=== PATIENT | female | born 1995 | race African-American/Black ===

== ENCOUNTER 2017-04-17 07:34 | Emergency (ER) | payer MEDICAID, OTHER ==
[~2017-04-17] VITALS: Ht 162.6 cm; Wt 65.5 kg
[2017-04-17 07:38] VITALS: BP 114/79
[2017-04-17] MEDS ORDERED: LEXA1TAB PO (07:46)
[2017-04-17] MEDS ORDERED: ADVI200C5 PO (07:46)
[2017-04-17] MEDS ORDERED: MAGICMW SSP (08:12)
== END 2017-04-17 08:22 | disposition home or self-care (01) ==
LOC: M ED 07:34
DX: J02.9 Acute pharyngitis, unspecified (principal); F32.9 Major depressive disorder, single episode, unspecified; Z79.899 Other long term (current) drug therapy

== ENCOUNTER → 2017-04-22 | Outpatient (REF) | payer OTHER ==
[~2017-04-22] MED LIST: ADVI200C5 PO; LEXA1TAB PO; MAGICMW SSP
== END ==
LOC: M SFHCLERA 16:50
PROVIDERS: ATTEND Physician Assistant
DX: R30.0 Dysuria (principal)

== ENCOUNTER 2017-06-25 18:50 | Emergency (ER) | payer OTHER ==
[2017-06-25 21:49] LABS: BASO % 0.2 % (0.0-1.0); EOS # 0.1 10^3/uL (0.0-0.50); EOS % 0.5 % (0.0-3.0); HEMATOCRIT 35.3 % (36.0-47.0); HEMOGLOBIN 11.9 g/dl (12.0-16.0); IMMATURE GRANULOCYTE # 0.1 10^3/uL (0-0); IMMATURE GRANULOCYTE % 0.6 % (0-0); LYMPH # 2.3 10^3/uL (1.5-6.5); LYMPH % 12.9 % (24.0-44.0); MEAN CORPUSCULAR HEMOGLOBIN 29.5 pg (27.0-33.0); MEAN CORPUSCULAR HGB CONC 33.7 g/dl (32.0-36.5); MEAN CORPUSCULAR VOLUME 87.6 fl (80.0-96.0); MONO # 1.3 10^3/uL (0.0-0.8); MONO % 7.4 % (0.0-5.0); NEUTROPHILS # 13.9 10^3/uL (1.8-7.7); NEUTROPHILS % 78.4 % (36.0-66.0); PLATELET COUNT, AUTOMATED 230 10^3/uL (150-450); RED BLOOD COUNT 4.03 10^6/uL (4.00-5.40); WHITE BLOOD COUNT 17.8 10^3/uL (4.0-10.0)
[2017-06-25] MEDS: NS 1,000 ML IV (21:53)
[2017-06-25 22:09] LABS: ANION GAP 7 MEQ/L (8-16); BLOOD UREA NITROGEN 7 MG/DL (7-18); C REACTIVE PROTEIN QUANTITATIV 1.71 MG/DL (0.00-0.30); CARBON DIOXIDE LEVEL 25 MEQ/L (21-32); CHLORIDE LEVEL 105 MEQ/L (98-107); CREATININE FOR GFR 0.66 MG/DL (0.55-1.02); GLUCOSE, FASTING 98 MG/DL (70-100); SODIUM LEVEL 137 MEQ/L (136-145)
[2017-06-25 22:12] LABS: CONTROL LINE MONO INT CTR LINE PRESENT; MONO SCRN NEGATIVE (NEGATIVE)
[2017-06-25] MEDS: KETOROLAC 30 MG/ML VIAL (J1885) IV (22:15)
[2017-06-25] MEDS: dexameTHASONE 20 MG/5 ML VIAL (J1100) IV (22:15)
[2017-06-25] MEDS: CEFAZOLIN SOD 1 GM in APPROPRIATE DILUENT 1 EA IV (22:15)
== END 2017-06-26 01:12 | disposition home or self-care (01) ==
LOC: M ED 06-26 01:12
DX: J02.0 Streptococcal pharyngitis (principal); J03.00 Acute streptococcal tonsillitis, unspecified; Z79.899 Other long term (current) drug therapy
CPT/HCPCS: J1100

== ENCOUNTER → 2017-06-25 | Outpatient (REF) | payer OTHER | LOC: M SFHCLERA 18:26 | DX: R50.9 Fever, unspecified (principal) ==

== ENCOUNTER 2018-10-09 22:52 | Emergency (ER) | payer OTHER ==
[~2018-10-09 22:52] MED LIST changes: +KEFL500C17 PO
[2018-10-09 23:01] VITALS: BP 153/84
== END 2018-10-09 23:48 | disposition home or self-care (01) ==
LOC: M ED 22:52
DX: F41.0 Panic disorder [episodic paroxysmal anxiety] (principal); F32.9 Major depressive disorder, single episode, unspecified; Z79.899 Other long term (current) drug therapy

== ENCOUNTER → 2018-10-13 | Outpatient (CLI) | payer OTHER ==
[2018-10-13 18:02] LABS: BASO % 0.4 % (0.0-1.0); EOS # 0.1 10^3/uL (0.0-0.50); EOS % 1.1 % (0.0-3.0); HEMATOCRIT 41.8 % (36.0-47.0); HEMOGLOBIN 13.8 g/dl (12.0-15.5); LYMPH # 1.7 10^3/uL (1.5-6.5); LYMPH % 20.6 % (24.0-44.0); MEAN CORPUSCULAR HEMOGLOBIN 30.3 pg (27.0-33.0); MEAN CORPUSCULAR VOLUME 91.7 fl (80.0-96.0); MONO # 0.6 10^3/uL (0.0-0.8); NEUTROPHILS # 5.7 10^3/uL (1.8-7.7); NEUTROPHILS % 70.5 % (36.0-66.0); PLATELET COUNT, AUTOMATED 187 10^3/uL (150-450); RED BLOOD COUNT 4.56 10^6/uL (4.00-5.40); WHITE BLOOD COUNT 8.1 10^3/uL (4.0-10.0)
[2018-10-13 18:05] LABS: ALBUMIN 3.9 GM/DL (3.2-5.2); ALT/SGPT 15 U/L (12-78); BILIRUBIN,TOTAL 0.5 MG/DL (0.2-1.0); BLOOD UREA NITROGEN 10 MG/DL (7-18); CALCIUM LEVEL 8.8 MG/DL (8.5-10.1); CARBON DIOXIDE LEVEL 27 MEQ/L (21-32); CHLORIDE LEVEL 103 MEQ/L (98-107); CREATININE FOR GFR 0.77 MG/DL (0.55-1.30); FREE T4 0.95 NG/DL (0.76-1.46); GLOMERULAR FILTRATION RATE > 60.0 (>60); GLUCOSE, FASTING 83 MG/DL (70-100); SODIUM LEVEL 136 MEQ/L (136-145); TOTAL PROTEIN 7.8 GM/DL (6.4-8.2)
[2018-10-13 18:06] LABS: TOTAL 25(OH) VITAMIN D 22.5 NG/ML (30.0-100.0)
== END ==
LOC: M SMT 14:21
PROVIDERS: ATTEND Physician Assistant
DX: R53.83 Other fatigue (principal)

== ENCOUNTER → 2021-07-05 | Outpatient (CLI) | payer OTHER ==
[2021-07-05 17:13] LABS: BASO % 0.5 % (0.0-1.0); EOS # 0.1 10^3/uL (0.0-0.5); EOS % 1.1 % (0.0-3.0); HEMATOCRIT 40.6 % (36.0-47.0); HEMOGLOBIN 13.1 g/dl (12.0-15.5); LYMPH # 1.9 10^3/uL (1.5-5.0); LYMPH % 32.4 % (24.0-44.0); MEAN CORPUSCULAR HEMOGLOBIN 29.9 pg (27.0-33.0); MEAN CORPUSCULAR HGB CONC 32.3 g/dl (32.0-36.5); MEAN CORPUSCULAR VOLUME 92.7 fl (80.0-96.0); MONO # 0.5 10^3/uL (0.0-0.8); MONO % 9.5 % (2.0-8.0); NEUTROPHILS # 3.2 10^3/uL (1.5-8.5); NEUTROPHILS % 56.3 % (36.0-66.0); PLATELET COUNT, AUTOMATED 205 10^3/uL (150-450); RED BLOOD COUNT 4.38 10^6/uL (4.00-5.40); WHITE BLOOD COUNT 5.7 10^3/uL (4.0-10.0)
[2021-07-05 17:34] LABS: ALT/SGPT 18 U/L (12-78); BILIRUBIN,TOTAL 0.4 MG/DL (0.2-1.0); BLOOD UREA NITROGEN 6 MG/DL (7-18); CALCIUM LEVEL 9.2 MG/DL (8.5-10.1); CARBON DIOXIDE LEVEL 30 MEQ/L (21-32); CHLORIDE LEVEL 105 MEQ/L (98-107); CREATININE FOR GFR 0.76 MG/DL (0.55-1.30); FREE T4 0.88 NG/DL (0.76-1.46); GLOMERULAR FILTRATION RATE > 60.0 (>60); GLUCOSE, FASTING 91 MG/DL (70-100); POTASSIUM SERUM 4.2 MEQ/L (3.5-5.1); SODIUM LEVEL 139 MEQ/L (136-145); THYROID STIMULATING HORMONE 0.654 uIU/ML (0.358-3.740); TOTAL PROTEIN 7.4 GM/DL (6.4-8.2)
== END ==
LOC: M PLALAB 15:22
PROVIDERS: ATTEND Nurse Practitioner Adult Health
DX: R19.7 Diarrhea, unspecified (principal)

== ENCOUNTER → 2022-07-02 | Outpatient (REF) | payer OTHER | LOC: M LAB REF 16:53 | PROVIDERS: ATTEND Nurse Practitioner Adult Health | DX: R30.0 Dysuria (principal) ==

== ENCOUNTER → 2022-10-25 | Outpatient (CLI) | payer OTHER ==
[2022-10-25 13:17] LABS: ALBUMIN 4.3 G/DL (3.2-5.2); ALKALINE PHOSPHATASE 44 U/L (46-116); ALT/SGPT 10 U/L (7.0-40); AST/SGOT 15 U/L (<34); BASO % 0.4 % (0.0-1.0); BILIRUBIN,TOTAL 0.4 MG/DL (0.3-1.2); BLOOD UREA NITROGEN 10 MG/DL (9-23); CALCIUM LEVEL 9.1 MG/DL (8.5-10.1); CARBON DIOXIDE LEVEL 28 MMOL/L (20-31); CHLORIDE LEVEL 105 MMOL/L (98-107); CREATININE FOR GFR 0.76 MG/DL (0.55-1.30); EOS # 0.1 10^3/uL (0.0-0.5); EOS % 1.8 % (0.0-3.0); GLOMERULAR FILTRATION RATE > 60.0 (>60); GLUCOSE, FASTING 86 MG/DL (60-100); HEMATOCRIT 38.8 % (36.0-47.0); HEMOGLOBIN 12.7 g/dl (12.0-15.5); LYMPH # 2.1 10^3/uL (1.5-5.0); LYMPH % 37.8 % (24.0-44.0); MEAN CORPUSCULAR HEMOGLOBIN 30.5 pg (27.0-33.0); MEAN CORPUSCULAR HGB CONC 32.7 g/dl (32.0-36.5); MONO # 0.5 10^3/uL (0.0-0.8); NEUTROPHILS # 2.9 10^3/uL (1.5-8.5); NEUTROPHILS % 50.6 % (36.0-66.0); PLATELET COUNT, AUTOMATED 222 10^3/uL (150-450); POTASSIUM SERUM 4.1 MMOL/L (3.5-5.1); RED BLOOD COUNT 4.17 10^6/uL (4.00-5.40); SODIUM LEVEL 140 MMOL/L (136-145); WHITE BLOOD COUNT 5.7 10^3/uL (4.0-10.0)
[2022-10-25 13:18] LABS: THYROID STIMULATING HORMONE 2.197 uIU/ML (0.55-4.78)
[2022-10-25 13:19] LABS: FREE T4 0.93 NG/DL (0.89-1.76)
== END ==
LOC: M PLALAB 10:44
PROVIDERS: ATTEND Nurse Practitioner Adult Health
DX: F31.9 Bipolar disorder, unspecified (principal)

== ENCOUNTER 2024-03-15 00:05 | Inpatient (IN) | payer OTHER, SELFPAY ==
[~2024-03-15] VITALS: Ht 160 cm; Wt 81.8 kg
[2024-03-15 00:54] LABS: BASO % 0.2 % (0.0-1.0); HEMATOCRIT 38.2 % (36.0-47.0); HEMOGLOBIN 12.8 g/dl (12.0-15.5); LYMPH # 0.8 10^3/uL (1.5-5.0); LYMPH % 6.7 % (24.0-44.0); MEAN CORPUSCULAR HEMOGLOBIN 29.8 pg (27.0-33.0); MEAN CORPUSCULAR HGB CONC 33.5 g/dl (32.0-36.5); MONO # 0.5 10^3/uL (0.0-0.8); MONO % 4.5 % (2.0-8.0); NEUTROPHILS # 9.9 10^3/uL (1.5-8.5); NEUTROPHILS % 88.2 % (36.0-66.0); PLATELET COUNT, AUTOMATED 206 10^3/uL (150-450); RED BLOOD COUNT 4.29 10^6/uL (4.00-5.40); WHITE BLOOD COUNT 11.2 10^3/uL (4.0-10.0)
[2024-03-15 01:14] LABS: ETHYL ALCOHOL (ETHANOL) < 0.003 % (0.000-0.010)
[2024-03-15 01:15] LABS: CPK CREATINE PHOSPHOKINASE 124 U/L (34-145)
[2024-03-15 01:16] LABS: ALBUMIN 4.1 G/DL (3.2-5.2); ALKALINE PHOSPHATASE 65 U/L (46-116); ALT/SGPT 14 U/L (7.0-40); AST/SGOT 14 U/L (<34); BILIRUBIN,DIRECT 0.1 MG/DL (<0.4); BILIRUBIN,TOTAL 0.3 MG/DL (0.3-1.2); BLOOD UREA NITROGEN 7 MG/DL (9-23); CALCIUM LEVEL 9.5 MG/DL (8.5-10.1); CARBON DIOXIDE LEVEL 24 MMOL/L (20-31); CHLORIDE LEVEL 108 MMOL/L (98-107); CREATININE FOR GFR 0.79 MG/DL (0.55-1.30); GLOMERULAR FILTRATION RATE > 60.0 (>60); GLUCOSE, FASTING 143 MG/DL (60-100); POTASSIUM SERUM 3.8 MMOL/L (3.5-5.1); SALICYLATE LEVEL < 3.0 MG/DL (<30); SODIUM LEVEL 139 MMOL/L (136-145); TOTAL PROTEIN 7.7 G/DL (5.7-8.2)
[2024-03-15 01:18] LABS: THYROID STIMULATING HORMONE 3.914 uIU/ML (0.55-4.78)
[2024-03-15 01:24] LABS: AMPHETAMINES LEVEL URINE NEGATIVE (NEGATIVE); BARBITURATES URINE NEGATIVE (NEGATIVE); COCAINE METABOLITE URINE NEGATIVE (NEGATIVE); METHADONE URINE NEGATIVE (NEGATIVE); OPIATES URINE NEGATIVE (NEGATIVE); PHENCYCLIDINE URINE NEGATIVE (NEGATIVE)
[2024-03-15 01:25] LABS: CANNABINOIDS URINE NEGATIVE (NEGATIVE)
[2024-03-15 01:27] LABS: BENZODIAZEPINES URINE POSITIVE (NEGATIVE)
[2024-03-15] MEDS ORDERED: SERT-141 (09:35)
[2024-03-15] MEDS ORDERED: LAMO100T68 PO (09:35)
[2024-03-15] MEDS ORDERED: MAALOX 30 ML SUSP *UDC PO PRN (11:35)
[2024-03-15] MEDS ORDERED: MOM 30ML SUSPENSION UDC PO PRN (11:35)
[2024-03-15] MEDS ORDERED: ZOLO100T PO (11:44)
[2024-03-15] MEDS ORDERED: QUET100T2 PO (11:45)
[2024-03-15] MEDS ORDERED: LORA-622 PO (11:49)
[2024-03-15] MEDS ORDERED: CHRO200C2 PO (11:49)
[2024-03-15] MEDS ORDERED: D 1010004 PO (11:49)
[2024-03-15] MEDS ORDERED: HOME MED LIST COMPLETE! XX SCH (11:55)
[2024-03-15] MEDS: traZODone 50 MG TAB PO PRN (22:18)
[2024-03-15] MEDS: IBUPROFEN 400MG TAB PO PRN (22:21)
[2024-03-16 06:37] VITALS: BP 137/86; TEMP 98.2; O2SAT 100
[2024-03-16] MEDS: diphenhydrAMINE 25MG CAP PO PRN (09:00)
[2024-03-16] MEDS: VITAMIN D 1,000 INTERNATIONAL UNITS TABLET PO SCH (13:31)
[2024-03-16 17:28] VITALS: BP 126/87; TEMP 97.1
[2024-03-16] MEDS: QUEtiapine FUMARATE 50MG TAB PO SCH (20:01)
[2024-03-16] MEDS: LORATADINE 10 MG TAB PO SCH (20:01)
[2024-03-16] MEDS: lamoTRIgine 100MG TAB PO SCH (20:02)
[2024-03-16] MEDS: SERTRALINE 100 MG TAB PO SCH (20:02)
[2024-03-16] MEDS: ACETAMINOPHEN TAB 650MG DOSE (2X325MG) PO PRN (21:25)
[2024-03-17 06:26] VITALS: BP 122/80; TEMP 97.4; O2SAT 99
[2024-03-17] MEDS ORDERED: ZOLO100T PO (09:14)
[2024-03-17] MEDS ORDERED: LAMO100T80 PO (09:14)
[2024-03-17] MEDS ORDERED: TRAZ-252 PO (09:14)
[2024-03-17] MEDS ORDERED: QUET50TA4 PO (09:14)
== END 2024-03-17 11:30 | disposition home or self-care (01) | DRG 753 ==
LOC: EDBD 00:05 → M ED 00:05 → M ED INP 11:35 → M PSY 15:32
PROVIDERS: ADMIT Psychiatry & Neurology Psychiatry; ATTEND Psychiatry & Neurology Psychiatry
DX: F31.9 Bipolar disorder, unspecified (principal); G40.909 Epilepsy, unspecified, not intractable, without status epilepticus; E55.9 Vitamin D deficiency, unspecified; F41.1 Generalized anxiety disorder; F60.89 Other specific personality disorders; F43.10 Post-traumatic stress disorder, unspecified; Z79.899 Other long term (current) drug therapy; D72.829 Elevated white blood cell count, unspecified; E74.39 Other disorders of intestinal carbohydrate absorption

== ENCOUNTER → 2024-05-14 | Outpatient (REF) | payer OTHER ==
[~2024-05-14] MED LIST changes: +CHRO200C2 PO; +D 1010004 PO; +LAMO100T68 PO; +LAMO100T80 PO; +LORA-622 PO; +QUET100T2 PO; +QUET50TA4 PO; +SERT-141; +TRAZ-252 PO; +ZOLO100T PO
[2024-05-14 20:07] LABS: ALBUMIN 3.9 G/DL (3.2-5.2); ALKALINE PHOSPHATASE 56 U/L (35-104); ALT/SGPT 16 U/L (7.0-40); AST/SGOT 17 U/L (<34); BILIRUBIN,TOTAL 0.3 MG/DL (0.3-1.2); BLOOD UREA NITROGEN 8 MG/DL (9-23); CALCIUM LEVEL 9.7 MG/DL (8.5-10.1); CARBON DIOXIDE LEVEL 26 MMOL/L (20-31); CHLORIDE LEVEL 105 MMOL/L (98-107); CHOLESTEROL LEVEL 158 MG/DL (<200); CHOLESTEROL RISK RATIO 3.17 (<5); CREATININE FOR GFR 0.81 MG/DL (0.55-1.30); GLOMERULAR FILTRATION RATE > 60.0 (>60); GLUCOSE, FASTING 90 MG/DL (60-100); HDL CHOLESTEROL 49.8 MG/DL (>40); LDL CHOLESTEROL 99.2 MG/DL (<100); NON-HDL-C 108.2 MG/DL; POTASSIUM SERUM 4.3 MMOL/L (3.5-5.1); SODIUM LEVEL 139 MMOL/L (136-145); TOTAL PROTEIN 7.4 G/DL (5.7-8.2); TRIGLYCERIDES LEVEL 45 MG/DL (<150)
[2024-05-14 20:09] LABS: THYROID STIMULATING HORMONE 3.722 uIU/ML (0.55-4.78); TOTAL 25(OH) VITAMIN D 80.2 NG/ML (20.0-100.0)
[2024-05-14 20:27] LABS: HEMOGLOBIN A1c 4.9 % (4.0-6.0)
== END ==
LOC: M LAB REF 16:21
PROVIDERS: ATTEND Physician Assistant
DX: E55.9 Vitamin D deficiency, unspecified (principal); E66.9 Obesity, unspecified